=== PATIENT | male | born 1960 | race Caucasian/White ===

== ENCOUNTER 2024-06-07 15:50 | Outpatient (REF) | payer BC, SELFPAY ==
--- NOTE | ~2024-06-07 | XR_ITS ---
CLINICAL HISTORY: chronic cough Chest two-view Comparison: None Findings: Mild cardiomegaly. Normal mediastinal contour. No venous distention, edema, pleural effusion. No consolidation. Thoracic spondylosis and mild arthrosis of the AC joints. Otherwise bones intact. Upper abdomen unremarkable. IMPRESSION: Mild cardiomegaly. Otherwise no acute cardiopulmonary process. This document has been electronically signed by: Jani Price MD on 06/10/2024 13:26:39
--- OUTSIDE RECORDS SUMMARY | 2024-06-07 16:45 | XMS_ITS | Continuity of Care Document ---
Author Organization [facility], [facility] Address [address] [place] [address] [place] [address] Assessment No assessment recorded. Plan of Treatment Reminders Order Date Submit Date Provider Last Modified By Organization Details Last Modified Time Details Appointments SDV 2024 02:45P M JOSE RAFAEL GRANADOS Not available Not available Not available ANNUAL EXAM 2024 09:00A M DR GELLER Not available Not available Not available Lab None recorded. Referral None recorded. Procedures None recorded. Surgeries None recorded. Imaging XR, chest 2024 025 [facility] (Imaging), [address] [place] [address], [address], 06/07/2024 15:23:52 Medication Orders benzonata te 200 mg capsule 2024 025 [facility], [address] [place], [address], 06/07/2024 15:22:22 Medrol (Raúl) 4 mg tablets in a dose pack 2024 025 [facility], [address] [place], [address], 06/07/2024 15:22:21 Patient TargetsNo targets recorded. Patient InstructionsNo instructions recorded. Reason for Referral None Reported. Problems Name Problem SNOMED Code Status Onset Date Resolution Date Notes Provider Name and Address Organization Details Recorded Time COVID-19 960090398 Active 2021 Chana acosta [place] - [facility] 11/18/202 2 10:58:11 Chronic cough 84755735 Active 2024 JOSE RAFAEL GRANADOS [address] [place], [address], [facility] 5 15:15:53 Problem Notes None recorded. Medical Equipment None Reported. Allergies No known drug allergies Medications Name Sig Start Date Stop Date Status Note LastModified by Organization Details LastModified Time ibuprofen 800 mg tablet 06/07 completed Not Available Not Available Not Available benzonatate 200 mg capsule Take 1 capsule 3 times a day by oral route for 14 days. 2024 active Not Available Not Available Not Avai lable Medrol (Raúl) 4 mg tablets in a dose pack Take 1 dose pk by oral route. 2024 active Not Available Not Available Not Avai lable Zyrtec 10 mg tablet Take 1 tablet every day by oral route. 06/07 completed Not Available Not Available Not Available amoxicillin 500 mg tablet 06/07 completed Not Available Not Available Not Available bisacodyl 5 mg tablet,delay ed release 03/27 completed Not Available Not Available Not Available chlorhexidin e gluconate 0.12 % mouthwash 06/07 completed Not Available Not Available Not Available peg 3350-electro lytes 236 gram-22.74 gram-6.74 gram-5.86 gram solution 03/27 completed Not Available Not Available Not Available Flucelvax Quad (PF) 60 mcg (15 mcg x 4)/0.5 mL IM syringe 06/07 completed Not Available Not Available Not Available Flulaval Quad (PF) 60 mcg (15 mcg x 4)/0.5 mL IM syringe 06/07 completed Not Available Not Available Not Available Vitals Date Recorded Body height Body mass index (BMI) Body weight Heart rate Oxygen saturation Oxygen saturation in Arterial blood by Pulse oximetry Systolic blood pressure Diastolic blood pressure Provider Name and Address Organization Details Last Updated DateTime 169.55 cm 27.5 kg/m2 50421.4 3 g 55 /min 97 % 97 % 140 mm[Hg] 72 mm[Hg] JOSE RAFAEL GRANADOS [address] [place], [address], [facility] 14:53:11 Social History Question Answer Notes LastModified by Organizat ion Details LastModified Time Tobacco Smoking Status Never Smoker Not Available [facility] 04/07/2020 03:36:24 What Is Your Level Of Alcohol Consumption? Occasional [id number] Information not available 04/07/2020 What Is Your Level Of Caffeine Consumption? Moderate 3 Cups Of Coffee Per Day [id number] Information not available 04/07/2020 What Was The Date Of Your Most Recent Tobacco Screening? 06/07/2024 [email or web address] Information not available 06/07/2024 How Much Tobacco Do You Smoke? No [id number] Information not available 04/07/2020 Sex: Unknown Functional Status Question Answer Note LastModified by Organization D etails LastModified Time What is your exercise level? None [id number] Information not available 04/07/2020 Mental Status None recorded. Family History Nothing Reported. Medical History No medical history recorded. Immunizations Vaccine Type Date Status Note Provider Nam e and Address Organization Details Recorded Time Influenza, split virus, quadrivalent, preservative 0 completed Conner acosta [facility] 03/02/2020 13:30:51 Past Encounters Encounter ID Performer Location Encounter Start Date Encounter Closed Date Diagnosis/Indication Diagnosis SNOMED-CT Code Diagnosis ICD10 Code Diagnosis Note [id number] JOSE RAFAEL GRANADOS [facility] [address] [address] [address] [facility] [place] [address] 06/07/2024 14:38:22 06/07/2024 15:23:51 Depression screening 801672941 Z13.31 SCREENING NEGATIVE Chronic cough 57794686 R 05.3 will set up with XRs fu with MB 06/11 Health Concerns Section Related Observation LastModified by Organization Detai ls LastModified Time None Recorded Concern Status LastModified by Organization Details LastModified Time None Recorded Payers Encounter Date Sequence Insurance Name Policy Number Policy Samano Covered Member ID Samano Member ID Guarantor Name 06/07/2024 1 [facility]: [facility] [place] [place] [id number] Eliceo Oconnor [id number] Eliceo Oconnor Notes Date Note Type Note Provider Name a nd Address Organization Details Recorded Time 5 text/html c/o chronic cough the patient has a linger coughing, productive in the morningdrier in the afternoonpatient has a sore throat, mild, actually improving, rhinorrhea has been using dayquil and nyquil throughout the last few weeks and cough drops never got checked with the initial infection a month agonever treated, no XR done recommended XR done to check for bronchitis vs walking pna given length of time and symptoms JOSE RAFAEL GRANADOS [address] [place] [address], [place], [address], [facility] 06/07/2024 15:22:43
--- OUTSIDE RECORDS SUMMARY | 2024-06-07 16:45 | XMS_ITS | Data Portability ---
Author Organization [facility], Home Service Address [address] [place] [address] Assessment No assessment recorded. Plan of Treatment Reminders Order Date Submit Date Provider Last Modified By Organization Details Last Modified Time Details Appointments SDV 2024 02:45P M JOSE RAFAEL GRANADOS Not available Not available Not available ANNUAL EXAM 2024 09:00A M DR GELLER Not available Not available Not available Lab urinalysi s, dipstick [address] [facility], [address] [facility], [place], [address], 02/26/2018 12:44:53 CMP, serum or plasma [address] [facility], [address] [place] [address], [address], 03/05/2018 07:13:18 lipid panel, blood [address] [facility], [address] [place] [address], [address], 03/05/2018 07:13:19 PSA, serum or plasma [address] [facility], [address] [place] [address], [address], 03/05/2018 07:13:19 hepatitis C Ab, serum 2019 020 [facility], [address] [place] [address], [address], 03/31/2020 11:27:16 CMP, serum or plasma 2019 [facility], [address] [place] [address], [address], 03/31/2020 11:42:33 lipid panel, blood 2019 [facility], [address] [place] [address], [address], 03/31/2020 10:54:10 CBC w/ auto diff 2019 [facility], [address] [place] [address], [address], 03/31/2020 10:54:10 Referral None recorded. Procedures None recorded. Surgeries None recorded. Imaging XR, chest [address] [place] [address] (Imaging), [address] [place] [address], [address], 06/07/2024 15:23:52 Medication Orders benzonata te 200 mg capsule 2024 025 [facility], [address] [place], [address], 06/07/2024 15:22:22 Medrol (Raúl) 4 mg tablets in a dose pack 2024 025 [facility], [address] [place], [address], 06/07/2024 15:22:21 Patient TargetsNo targets recorded. Patient Instructions Encounter Date Encounter Id Patient Instructions Last Modified By Organization Details Last Modified Time 02/26/2018 [id number] specimen collection & handling* Not available 03/05/2018 07:11:00 discussed diet and exercise Not available 02/26/2018 12:46:35 Reason for Referral None Reported. Results Created Date Observation Date Name Description Value Unit Range Abnormal Flag Note LastModifiedBy Organization Detail LastModifiedTime 02/27/20 18 02/26/2018 urina lysis , dipst ick Leukocytes Negati ve Not Available [facility] [address], [place], [address], 02/26/2018 12:11:39 02/27/20 18 02/26/2018 urina lysis , dipst ick Nitrite negati ve Not Available [facility] [address], [place], [address], 02/26/2018 12:11:39 02/27/20 18 02/26/2018 urina lysis , dipst ick Urobilinogen .2 Not Available [facility] [address], [place], [address], 02/26/2018 12:11:39 02/27/20 18 02/26/2018 urina lysis , dipst ick Protein Negati ve Not Available [facility] [address], [place], [address], 02/26/2018 12:11:39 02/27/20 18 02/26/2018 urina lysis , dipst ick pH 5.5 Not Available [facility] [address], [place], [address], 02/26/2018 12:11:39 02/27/20 18 02/26/2018 urina lysis , dipst ick Blood Negati ve Not Available [facility] [address], [place], [address], 02/26/2018 12:11:39 02/27/20 18 02/26/2018 urina lysis , dipst ick Specific [place] 1.030 Not Available [facility] [address], [place], [address], 02/26/2018 12:11:39 02/27/20 18 02/26/2018 urina lysis , dipst ick Ketone Negati ve Not Available [facility] [address], [place], [address], 02/26/2018 12:11:39 02/27/20 18 02/26/2018 urina lysis , dipst ick Bilirubin Negati ve Not Available [facility] [address], [place], [address], 02/26/2018 12:11:39 02/27/20 18 02/26/2018 urina lysis , dipst ick Glucose Negati ve Not Available [facility] Internal [facility] [address], [place], [address], 02/26/2018 12:11:39 02/27/20 18 02/26/2018 urina lysis , dipst ick Appearance Clear Not Available [facility] [address], [place], [address], 02/26/2018 12:11:39 02/27/20 18 02/26/2018 urina lysis , dipst ick Color Yellow Not Available [facility] [address], [place], [address], 02/26/2018 12:11:39 10/15/19 20 10/15/2019 , Martina ruiz ation record ed. [facility] [address] [facility], [place], [address], 10/15/2019 10:14:27 Result Notes None recorded. Problems Name Problem SNOMED Code Status Onset Date Resolution Date Notes Provider Name and Address Organization Details Recorded Time COVID-19 848919870 Active 2021 Chana acosta [place] - [facility] 2 10:58:11 Chronic cough 24897978 Active 2024 JOSE RAFAEL GRANADOS [address], [place], [address], [facility] Internal [facility] 5 15:15:53 Problem Notes None recorded. Procedures Surgical History None recorded. Imaging Results Imaging Date Name Status LastModified by Organiz ation Details LastModified Time 10/15/2019 US, kidney completed [facility] [address] [place], [address], 10/15/2019 10:14:27 Procedure Notes None recorded. Medical Equipment None Reported. [...] and Address Organization Details Last Updated DateTime 0 169.55 cm 28.2 kg/m2 61823.2 4 g 54 /min 97 % 97 % 122 mm[Hg] 60 mm[Hg] Annabel Martinez [facility] 0 09:31:57 Date Recorded Body height Body mass index (BMI) Body weight Heart rate Oxygen saturation Oxygen saturation in Arterial blood by Pulse oximetry Systolic blood pressure Diastolic blood pressure Provider Name and Address Organization Details Last Updated DateTime 8 169.55 cm 26.5 kg/m2 18447.2 4 g 52 /min 98 % 98 % 112 mm[Hg] 60 mm[Hg] Annabel Juan [facility] 8 12:15:37 Date Recorded Body height Body mass index (BMI) Body weight Heart rate Oxygen saturation Oxygen saturation in Arterial blood by Pulse oximetry Systolic blood pressure Diastolic blood pressure Provider Name and Address Organization Details Last Updated DateTime 5 169.55 cm 27.5 kg/m2 03894.4 3 g 55 /min 97 % 97 % 140 mm[Hg] 72 mm[Hg] JOSE RAFAEL GRANADOS [address] [place], [address], [facility] 5 14:53:11 Social History Question Answer Notes LastModified by Organizat ion Details LastModified Time Tobacco Smoking Status Never Smoker Not Available [facility] 04/07/2020 03:36:24 What Is Your Level Of Alcohol Consumption? Occasional [id number] Information not available 04/07/2020 What Is Your Level Of Caffeine Consumption? Moderate 3 Cups Of Coffee Per Day [id number] Information not available 04/07/2020 What Was The Date Of Your Most Recent Tobacco Screening? 06/07/2024 [email or web address] Information not available 06/07/2024 How Much Tobacco Do You Smoke? No [id number] Information not available 04/07/2020 Sex: Unknown Functional Status Question Answer Note LastModified by Organization D etails LastModified Time What is your exercise level? None [id number] Information not available 04/07/2020 Mental Status None recorded. Family History Nothing Reported. Medical History No medical history recorded. Immunizations Vaccine Type Date Status Note Provider Nam e and Address Organization Details Recorded Time Influenza, split virus, quadrivalent, preservative 0 completed Conner acosta [facility] 03/02/2020 13:30:51 Past Encounters Encounter ID Performer Location Encounter Start Date Encounter Closed Date Diagnosis/Indication Diagnosis SNOMED-CT Code Diagnosis ICD10 Code [id number] Tacho Geller [facility] Internal [facility] [address] [facility] [address] 02/26/2018 11:59:25 02/26/2018 13:35:56 Adult health examination 892423449 Z00.00 Active or passive immunization 726732931 Z23 [id number] Tacho Geller [facility] Internal Medicine [address] [facility] [address] 03/27/2020 09:28:32 03/27/2020 09:56:56 Active or passive immunization 226229947 Z23 Adult heal th examination 934626764 Z00.00 [id number] JOSE RAFAEL GRANADOS [facility] Internal Medicine [address] [facility] [address] 06/07/2024 14:38:22 06/07/2024 15:23:51 Depression screening 413171862 Z13.31 Chronic cough 00367719 R 05.3 Health Concerns Section Related Observation LastModified by Organization Detai ls LastModified Time None Recorded Concern Status LastModified by Organization Details LastModified Time None Recorded Advance Directives Directive None Recorded Payers Encounter Date Sequence Insurance Name Policy Number Policy Samano Covered Member ID Samano Member ID Guarantor Name 02/26/2018 1 [facility]: [facility] [place] [place] [id number] Eliceoclaire Merloslass [id number] 24 Eliceo Lytle 03/27/2020 1 [facility]: [facility] ([facility] [place] [id number] Eliceo P Lytle [id number] 24 Eliceo Lytle 06/07/2024 1 [facility]: [facility] ([facility] [place] [id number] Eliceo P Lytle [id number] 24 Eliceo Lytle Notes Date Note Type Note Provider Name a nd Address Organization Details Recorded Time 8 text/html Annual WellnessReported bypatient.Diet and Nutrition:healthy diet Fracture Risk:no history of fractures; no recent explained fracture; no sudden unexplained fractures; no previous musculoskeletal injuries Physical Activity:exercises on a regular basis; recent increase in physical activity; good physical condition Additional Lifestyle Factors:no tobacco use; no alcohol intake; stopped drinking alcohol Depression Risk:never feels sad, empty, or tearful; no loss of interest in activities; no significant changes in weight; no sleep disturbances or insomnia; no agitation; no loss of energy; no feelings of worthlessness or guilt; no thoughts of suicide; no history of depression; no history of mood disorders Hearing:no loss of hearing Vision:no vision problems here for rechk Tacho Amandeep Geller, DO [address] [place] [address], [address], [facility] 02/26/2018 12:46:49 0 text/html Annual WellnessReported bypatient.Diet and Nutrition:healthy diet Fracture Risk:no history of fractures; no recent explained fracture; no sudden unexplained fractures; no previous musculoskeletal injuries Physical Activity:exercises on a regular basis; recent increase in physical activity; good physical condition Additional Lifestyle Factors:no tobacco use; no alcohol intake; stopped drinking alcohol Depression Risk:never feels sad, empty, or tearful; no loss of interest in activities; no significant changes in weight; no sleep disturbances or insomnia; no agitation; no loss of energy; no feelings of worthlessness or guilt; no thoughts of suicide; no history of depression; no history of mood disorders Hearing:no loss of hearing Vision:no vision problems Tacho Geller DO [address] [place] [address], [address], [facility] 03/27/2020 09:51:55 5 text/html c/o chronic cough the patient [...] of time and symptoms JOSE RAFAEL GRANADOS [address] [place], [address], [facility] 06/07/2024 15:22:43
== END 2024-06-07 15:51 | disposition home or self-care (01) ==
LOC: HO.XRAY 15:50
PROVIDERS: PCP Internal Medicine; Visit Provider Physician Assistant
DX: R05.3 Chronic cough (principal)
CPT/HCPCS: 71046

== ENCOUNTER → 2024-06-07 16:10 | Outpatient (BNV) | payer BC, SELFPAY | PROVIDERS: PCP Internal Medicine; Visit Provider Radiology Diagnostic Radiology | DX: R05.3 Chronic cough (principal) | CPT/HCPCS: 71046 ==

== ENCOUNTER 2024-06-12 09:22 | Outpatient (REF) | payer BC, SELFPAY ==
--- OUTSIDE RECORDS SUMMARY | 2024-06-12 09:27 | XMS_ITS | Data Portability ---
Author Organization [facility] Home Service Address [address] [place] [address] Assessment No assessment recorded. Plan of Treatment Reminders Order Date Submit Date Provider Last Modified By Organization Details Last Modified Time Details Appointments ANNUAL EXAM 2025 09:00A M DR GELLER Not available Not available Not available Lab CMP, serum or plasma 2024 025 [facility], [address] [place] [address], [id number], 06/11/2024 09:23:41 CBC w/ auto diff 2024 025 [facility], [address] [place] [address], [id number], 06/11/2024 09:23:41 PSA, serum or plasma 2024 025 [facility], [address] [place] [address], [address], 06/11/2024 09:23:41 lipid panel, blood 2024 025 [facility], [address] [place] [address], [id number], 06/11/2024 09:23:41 vitamin D, 25-hydrox y, total, serum 2024 025 [facility], [address] [place] [address], [address], 06/11/2024 09:23:41 hepatitis C Ab, serum 2019 [facility], [address] [place] [address], [address], 03/31/2020 11:27:16 CMP, serum or plasma 2019 [facility], [address] [place] [address], [address], 03/31/2020 11:42:33 lipid panel, blood 2019 [facility], [address] [place] [address], [address], 03/31/2020 10:54:10 CBC w/ auto diff 2019 [facility], [address] [place] [address], [id number], 03/31/2020 10:54:10 urinalysi s, dipstick [address] [facility], [address] [facility], [address], [place], [address], 02/26/2018 12:44:53 CMP, serum or plasma [address] [facility], [address] [place] [address], [address], 03/05/2018 07:13:18 lipid panel, blood [address] [facility], [address] [place] [address], [address], 03/05/2018 07:13:19 PSA, serum or plasma [facility] [address] [facility] [place] [address] Laboratory, [address] [place] [address], [address], 03/05/2018 07:13:19 Referral None recorded. Procedures None recorded. Surgeries None recorded. Imaging CT, heart, w/o contrast, w/ coronary calcium score 2024 025 [facility], [address] [facility], [place], [address], 06/11/2024 09:30:09 XR, chest 2024 025 [facility] (Imaging), [address] [place], [address], 06/10/2024 13:44:48 Medication Orders azithromy juan 250 mg tablet 2024 025 [facility], [address] [place], [address], 06/11/2024 09:26:17 benzonata te 200 mg capsule 2024 025 [place] [facility], [address] [place], [address], 06/07/2024 15:22:22 Medrol (Raúl) 4 mg tablets in a dose pack 2024 025 [place] [facility], [address] [place], [address], 06/07/2024 15:22:21 Patient TargetsNo targets recorded. Patient Instructions Encounter Date Encounter Id Patient Instructions Last Modified By Organization Details Last Modified Time 02/26/2018 [id number] specimen collection & handling* Not available 03/05/2018 07:11:00 discussed diet and exercise Not available 02/26/2018 12:46:35 Reason for Referral None Reported. Results Created Date Observation Date Name Description Value Unit Range Abnormal Flag Note LastModifiedBy Organization Detail LastModifiedTime 02/27/20 18 02/26/2018 urina lysis , dipst ick Leukocytes Negati ve Not Available [facility] [address] [facility] [address], [place], [address], 02/26/2018 12:11:39 02/27/20 18 02/26/2018 urina lysis , dipst ick Nitrite negati ve Not Available [facility] [address] [facility] [address], [place], [address], 02/26/2018 12:11:39 02/27/20 18 02/26/2018 urina lysis , dipst ick Urobilinogen .2 Not Available [facility] [address] [facility] [address], [place], [address], 02/26/2018 12:11:39 02/27/20 18 02/26/2018 urina lysis , dipst ick Protein Negati ve Not Available [facility] [address] [facility] [address], [place], [address], 02/26/2018 12:11:39 02/27/20 18 02/26/2018 urina lysis , dipst ick pH 5.5 Not Available [facility] [address] [facility] [address], [place], [address], 02/26/2018 12:11:39 02/27/20 18 02/26/2018 urina lysis , dipst ick Blood Negati ve Not Available [facility] [address] [facility] [address], [place], [address], 02/26/2018 12:11:39 02/27/20 18 02/26/2018 urina lysis , dipst ick Specific Ball 1.030 Not Available [facility] [address] [facility] [address], [place], [address], 02/26/2018 12:11:39 02/27/20 18 02/26/2018 urina lysis , dipst ick Ketone Negati ve Not Available [facility] [address] [facility] [address], [place], [address], 02/26/2018 12:11:39 02/27/20 18 02/26/2018 urina lysis , dipst ick Bilirubin Negati ve Not Available [facility] [address] [facility] [address], [place], [address], 02/26/2018 12:11:39 02/27/20 18 02/26/2018 urina lysis , dipst ick Glucose Negati ve Not Available [facility] [address] [facility] [address], [place], [address], 02/26/2018 12:11:39 02/27/20 18 02/26/2018 urina lysis , dipst ick Appearance Clear Not Available [facility] [address] [facility] [address], [place], [address], 02/26/2018 12:11:39 02/27/20 18 02/26/2018 urina lysis , dipst ick Color Yellow Not Available [facility] [address] [facility] [address], [place], [address], 02/26/2018 12:11:39 10/15/19 20 10/15/2019 US, teri henderson No observ ation record ed. [facility] [address] [place], [address], 10/15/2019 10:14:27 06/10/19 25 06/07/2024 XR, chest No observ ation record ed. [email or web address] [facility] (Imaging) [address] [place], [address], 06/11/2024 10:39:34 Result Notes None recorded. Problems Name Problem SNOMED Code Status Onset Date Resolution Date Notes Provider Name and Address Organization Details Recorded Time COVID-19 231026799 Active 2021 Chana acosta [facility] 2 10:58:11 Chronic cough 38489382 Active 2024 JOSE RAFAEL GRANADOS [address] [facility], [place], [address], [facility] 15:15:53 Pneumoniti s 323829165 Active 2024 Tacho Geller, DO [address] [facility], [place], [address], [place] [facility] 09:25:17 Problem Notes None recorded. Procedures Surgical History None recorded. Imaging Results Imaging Date Name Status LastModified by Organiz ation Details LastModified Time 10/15/2019 US, kidney completed Natarajan Nataliya [facility] [address] [place], [address], 10/15/2019 10:14:27 06/07/2024 XR, chest completed [email or web address] [facility] (Imaging) [address] [place], [address], 06/11/2024 10:39:34 Procedure Notes None recorded. Medical Equipment None Reported. Allergies No known drug allergies Medications Name Sig Start Date Stop Date Status Note LastModified by Organization Details LastModified Time azithromycin 250 mg tablet TAKE 2 TABLETS (500 MG) BY ORAL ROUTE ONCE DAILY FOR 1 DAY THEN 1 TABLET (250 MG) BY ORAL ROUTE ONCE DAILY FOR 4 DAYS 2024 active Not Available Not Available Not Avai lable ibuprofen 800 mg tablet 06/07 completed Not Available Not Available Not Available benzonatate 200 mg capsule Take 1 capsule 3 times a day by oral route for 14 days. active Not Available Not Available No t Available Zyrtec 10 mg tablet Take 1 tablet every day by oral route. 06/07 completed Not Available Not Available Not Available amoxicillin 500 mg tablet 06/07 completed Not Available Not Available Not Available bisacodyl 5 mg tablet,delay ed release 03/27 completed Not Available Not Available Not Available methylpredni solone 4 mg tablets in a dose pack Take 1 dose pk by oral route. active Not Available Not Available No t Available chlorhexidin e gluconate 0.12 % mouthwash [...] Updated DateTime 0 169.55 cm 28.2 kg/m2 28052.2 4 g 54 /min 97 % 97 % 122 mm[Hg] 60 mm[Hg] Annabel Martinez [facility] 0 09:31:57 Date Recorded Body height Body mass index (BMI) Body weight Heart rate Oxygen saturation Oxygen saturation in Arterial blood by Pulse oximetry Systolic blood pressure Diastolic blood pressure Provider Name and Address Organization Details Last Updated DateTime 8 169.55 cm 26.5 kg/m2 95323.2 4 g 52 /min 98 % 98 % 112 mm[Hg] 60 mm[Hg] Annabel Martinez [facility] 8 12:15:37 Date Recorded Body height Body mass index (BMI) Body weight Heart rate Oxygen saturation Oxygen saturation in Arterial blood by Pulse oximetry Systolic blood pressure Diastolic blood pressure Provider Name and Address Organization Details Last Updated DateTime 5 169.55 cm 27.5 kg/m2 31418.4 3 g 55 /min 97 % 97 % 140 mm[Hg] 72 mm[Hg] JOSE RAFAEL GRANADOS [address] [place], [address], [facility] 5 14:53:11 Date Recorded Body height Body mass index (BMI) Body weight Heart rate Oxygen saturation Oxygen saturation in Arterial blood by Pulse oximetry Systolic blood pressure Diastolic blood pressure Provider Name and Address Organization Details Last Updated DateTime 5 169.55 cm 27.6 kg/m2 77579.6 6 g 69 /min 98 % 98 % 122 mm[Hg] 70 mm[Hg] Tacho Geller DO [address] [place], [address], [facility] 08:59:29 Social History Question Answer Notes LastModified by Organizat ion Details LastModified Time Tobacco Smoking Status Never Smoker Not Available [facility] 04/07/2020 03:36:24 What Is Your Level Of Alcohol Consumption? Occasional [id number] Information not available 04/07/2020 What Is Your Level Of Caffeine Consumption? Moderate 3 Cups Of Coffee Per Day [id number] Information not available 04/07/2020 What Was The Date Of Your Most Recent Tobacco Screening? 06/11/2024 Information not available 06/11/2024 How Much Tobacco Do You Smoke? No [id number] Information not available 04/07/2020 Do You Or Have You Ever Used Any Other Forms Of Tobacco Or Nicotine? No Information not available 06/11/2024 Sex: Unknown Functional Status Question Answer Note LastModified by Organization D etails LastModified Time What is your exercise level? None [id number] Information not available 04/07/2020 Mental Status None recorded. Family History Nothing Reported. Medical History No medical history recorded. Immunizations Vaccine Type Date Status Note Provider Nam e and Address Organization Details Recorded Time Influenza, split virus, quadrivalent, preservative 0 completed Conner Geller [facility] 03/02/2020 13:30:51 Past Encounters Encounter ID Performer Location Encounter Start Date Encounter Closed Date Diagnosis/Indication Diagnosis SNOMED-CT Code Diagnosis ICD10 Code Diagnosis Note [id number] Tacho Geller DO [facility] [address] [place] [address] [place] [address] 02/26/2018 11:59:25 02/26/2018 13:35:56 Adult health examination 025473710 Z00.00 Active or passive immunization 427548714 Z23 [id number] Tacho Geller DO [facility] [address] [place] [address] [place] [address] 03/27/2020 09:28:32 03/27/2020 09:56:56 Active or passive immunization 542032733 Z23 Adult heal th examination 494300058 Z00.00 doing great and no major issues followed by urologist for CaP but no evidence of recurrence and is back to 1 x yr visits [id number] Tacho Geller DO [facility] [address] [facility] noemi [facility] [place] [address] 06/11/2024 08:52:49 06/11/2024 09:30:08 Adult health examination 431868159 Z00.00 doing great and no major issues followed by urologist for CaP but no evidence of recurrence and is back to 1 x yr visits Pneumonitis 327577636 J1 8.9 [id number] JOSE RAFAEL GRANADOS [facility] [address] [facility],[place] [address] 06/07/2024 14:38:22 06/07/2024 15:23:51 Depression screening 572775653 Z13.31 SCREENING NEGATIVE Chronic cough 45756451 R 05.3 will set up with XRhas fu with MB 06/11 Health Concerns Section Related Observation LastModified by Organization Detai ls LastModified Time None Recorded Concern Status LastModified by Organization Details LastModified Time None Recorded Advance Directives Directive None Recorded Payers Encounter Date Sequence Insurance Name Policy Number Policy Samano Covered Member ID Samano Member ID Guarantor Name 02/26/2018 1 [place] [facility] [place] [id number] Eliceo [place] [id number] [place] 03/27/2020 1 [place] [facility] [place] [place] [id number] Eliceo [place] [id number] [place] 06/07/2024 1 [place] [facility] [place] [place] [id number] Eliceo [place] [id number] 24 [place] 06/11/2024 1 [place] [facility] [place] [place] [id number] Eliceo P [place]vin [id number] [address] [place] [place] Notes Date Note Type Note Provider Name [...] Vision:no vision problems here for rechk Tacho ColbyNedra Geller DO [address] [place] [address], [address], [facility] 02/26/2018 12:46:49 0 text/html Annual [...] loss of hearing Vision:no vision problems Tacho ColbyNedra Geller DO [address] [place] [address], [address], [facility] 03/27/2020 09:51:55 5 text/html c/o [...] time and symptoms JOSE RAFAEL GRANADOS [address] [place], [address], [facility] 06/07/2024 15:22:43 5 text/html doing well overallrelates that he has had a cough for several weeks #3-4 and remains a problem it is productivestates usual aches and painsalso noted to have diminished hearinggetting dentition worked on Tacho Geller, DO [address] [facility], [place], [address], [facility] 06/11/2024 09:28:59
--- OUTSIDE RECORDS SUMMARY | 2024-06-12 09:28 | XMS_ITS | Continuity of Care Document ---
Author Organization [facility], [facility] Address [address] [facility] [place] [address] Assessment No assessment recorded. Plan of Treatment Reminders Order Date Submit Date Provider Last Modified By Organization Details Last Modified Time Details Appointments ANNUAL EXAM 2025 09:00A M DR GELLER Not available Not available Not available Lab None recorded . Referral None recorded . Procedures None recorded . Surgeries None recorded . Imaging None recorded . Medication Orders None recorded . Patient TargetsNo targets recorded. Patient InstructionsNo instructions recorded. Reason for Referral None Reported. Results Created Date Observation Date Name Description Value Unit Range Abnormal Flag Note LastModifiedBy Organization Detail LastModifiedTime 06/10/19 25 06/07/2024 XR, chest No observ ation record ed. [email or web address] [facility] (Imaging) [address] [place] [address], [address], 06/11/2024 10:39:34 Result Notes None recorded. Problems Name Problem SNOMED Code Status Onset Date Resolution Date Notes Provider Name and Address Organization Details Recorded Time COVID-19 271324178 Active 2021 Chana acosta [facility] 2 10:58:11 Chronic cough 79623691 Active 2024 JOSE RAFAEL GRANADOS [address] [place] [address], [address], [facility] 5 15:15:53 Pneumoniti s 726356554 Active 2024 Tacho Geller DO [address] [place] [address], [address], [facility] 5 09:25:17 Problem Notes None recorded. Medical Equipment None [...] Updated DateTime 5 169.55 cm 27.5 kg/m2 42581.4 3 g 55 /min 97 % 97 % 140 mm[Hg] 72 mm[Hg] JOSE RAFAEL GRANADOS [address] [place], [address] , [place] [facility] [place] [facility] 5 14:53:11 Social History Question Answer Notes LastModified by Organizat ion Details LastModified Time Tobacco Smoking Status Never Smoker Not Available [employer] 04/07/2020 03:36:24 What Is Your Level Of Alcohol Consumption? Occasional [id number] Information not available 04/07/2020 What Is Your Level Of Caffeine Consumption? Moderate 3 Cups Of Coffee Per Day [id number] Information not available 04/07/2020 What Was The Date Of Your Most Recent Tobacco Screening? 06/11/2024 Information not available 06/11/2024 How Much Tobacco Do You Smoke? No [id number] Information not available 04/07/2020 Do You Or Have You Ever Used Any Other Forms Of Tobacco Or Nicotine? No Information not available 06/11/2024 Sex: Unknown Functional Status Question Answer Note LastModified by Organization D etails LastModified Time What is your exercise level? None [id number] Information not available 04/07/2020 Mental Status None recorded. Family History Nothing Reported. Medical History No medical history recorded. Immunizations Vaccine Type Date Status Note Provider Nam e and Address Organization Details Recorded Time Influenza, split virus, quadrivalent, preservative 0 completed Conner acosta [facility] 03/02/2020 13:30:51 Past Encounters Encounter ID Performer Location Encounter Start Date Encounter Closed Date Diagnosis/Indication Diagnosis SNOMED-CT Code Diagnosis ICD10 Code Diagnosis Note [id number] JOSE RAFAEL GRANADOS [facility] [address] [facility],[place] [address] 06/07/2024 14:38:22 06/07/2024 15:23:51 Depression screening 746289134 Z13.31 SCREENING NEGATIVE Chronic cough 33360561 R 05.3 will set up with XRs fu with MB 06/11 Health Concerns Section Related Observation LastModified by Organization Detai ls LastModified Time None Recorded Concern Status LastModified by Organization Details LastModified Time None Recorded Payers Encounter Date Sequence Insurance Name Policy Number Policy Samano Covered Member ID Samano Member ID Guarantor Name 06/07/2024 1 [place] [facility] [place] [id number] Eliceo [place] [id number] [place] [place] Notes Date Note Type [...] of time and symptoms JOSE RAFAEL GRANADOS [address] [place] [address], [place], [address], [facility] 06/07/2024 15:22:43
--- OUTSIDE RECORDS SUMMARY | 2024-06-12 09:28 | XMS_ITS | Continuity of Care Document ---
Author Organization [facility], [facility] Address [address] [facility] [place] [place] [address] Assessment No assessment recorded. Plan of Treatment [...] chest No observ ation record ed. [email or web address] [facility] (Imaging) [address] [place] [address], [address], 06/11/2024 10:39:34 Result Notes None recorded. Problems Name Problem SNOMED Code Status Onset Date Resolution Date Notes Provider Name and Address Organization Details Recorded Time COVID-19 656337835 Active 2021 Chana acosta [facility] 2 10:58:11 Chronic cough 24274684 Active 2024 JOSE RAFAEL GRANADOS [address] [place] [address], [address], [facility] 5 15:15:53 Pneumoniti s 024750563 Active 2024 Tacho Geller DO [address] [place] [address], [address], [facility] 5 09:25:17 Problem Notes None [...] Updated DateTime 5 169.55 cm 27.6 kg/m2 10874.6 6 g 69 /min 98 % 98 % 122 mm[Hg] 70 mm[Hg] Tacho Geller, DO [address] [place], [address] [place] [address] Internal Medicine 5 08:59:29 Social History Question Answer Notes LastModified by Organizat ion Details LastModified Time Tobacco Smoking Status Never Smoker Not Available [employer] 04/07/2020 03:36:24 What Is Your Level Of Alcohol Consumption? Occasional [id number] Information not available 04/07/2020 What Is Your Level Of Caffeine Consumption? Moderate 3 Cups Of Coffee Per Day [id number] Information not available 04/07/2020 What Was The Date Of Your Most Recent Tobacco Screening? 06/11/2024 Information not available 06/11/2024 How Much Tobacco Do You Smoke? No [id number] Information not available 04/07/2020 Do You Or Have You Ever Used Any Other Forms Of Tobacco Or Nicotine? No Information not available 06/11/2024 Sex: Unknown Functional Status Question Answer Note LastModified by Organization D etails LastModified Time What is your exercise level? None [id number] Information not available 04/07/2020 Mental Status None recorded. Family History Nothing Reported. Medical History No medical history recorded. Immunizations Vaccine Type Date Status Note Provider Nam e and Address Organization Details Recorded Time Influenza, split virus, quadrivalent, preservative 0 completed Conner Geller [facility] 03/02/2020 13:30:51 Past Encounters Encounter ID Performer Location Encounter Start Date Encounter Closed Date Diagnosis/Indication Diagnosis SNOMED-CT Code Diagnosis ICD10 Code Diagnosis Note [id number] Tacho Geller DO [facility] [address] [facility] [address] 06/11/2024 08:52:49 06/11/2024 09:30:08 Adult health examination 112500766 Z00.00 doing great and no major issues followed by urologist for CaP but no evidence of recurrence and is back to 1 x yr visits Pneumonitis 476414205 J1 8.9 [id number] JOSE RAFAEL GRANADOS [facility] [address] [facility] [place] [address] 06/07/2024 14:38:22 06/07/2024 15:23:51 Depression screening 231171823 Z13.31 SCREENING NEGATIVE Chronic cough 29659994 R 05.3 will set up with XRhas fu with 06/11 Health Concerns Section Related Observation LastModified by Organization Detai ls LastModified Time None Recorded Concern Status LastModified by Organization Details LastModified Time None Recorded Payers Encounter Date Sequence Insurance Name Policy Number Policy Samano Covered Member ID Samano Member ID Guarantor Name 06/11/2024 1 [facility]: [facility] [place] [id number] Eliceo Oconnor [id number] Eliceo [place] Notes Date Note Type Note Provider Name a nd Address Organization Details Recorded Time text/html doing well overallrelates that he has had a cough for several weeks #3-4 and remains a problem it is productivestates usual aches and painsalso noted to have diminished hearinggetting dentition worked on Tacho Geller, DO [address] [place] [address], [place], [address], [facility] 06/11/2024 09:28:59
[2024-06-12 09:42] LABS: MANUAL DIFF FLAG NO
[2024-06-12 10:05] LABS: Basophils Percent Auto 0.3 % (0-2); Eosinophils Absolute Auto 0.2 X10*3/uL (0.0-0.4); Eosinophils Percent Auto 1.9 % (0-4); Hematocrit 42.3 % (42.0-52.0); Imm Gran Pct Auto 0.9 % (0.0-0.4); Lymphocytes Absolute Auto 2.2 X10*3/uL (1.2-4.9); Lymphocytes Percent Auto 20.1 % (20-40); Mean Corpuscular HGB Conc 33.1 g/dl (31.0-36.0); Mean Corpuscular Hemoglobin 29.3 pg (27.0-33.0); Mean Corpuscular Volume 88.5 fL (80.0-98.0); Mean Platelet Volume 10.5 fL (9.4-12.4); Monocytes Percent Auto 9.1 % (2-11); Neutrophils Absolute Auto 7.3 x10*3/uL (2.0-8.3); Neutrophils Percent Auto 67.7 % (45-73); Platelet Count 296 X10*3/uL (160-400); Red Blood Count 4.78 X10*6/uL (4.60-5.80); Red Cell Distribution Width 12.8 % (11.0-16.0); White Blood Count 10.8 X10*3/uL (4.8-10.8)
[2024-06-12 10:42] LABS: Alanine Aminotransferase 24 U/L (0-40); Albumin Level 3.9 g/dL (3.5-5.0); Alkaline Phosphatase 68 U/L (39-117); Anion Gap 11 (12-20); Aspartate Amino Transferase 31 U/L (5-37); Bilirubin Total 0.5 mg/dL (0.0-1.0); Blood Urea Nitrogen 20 mg/dL (9-16); Calcium 10.6 mg/dL (8.4-10.2); Carbon Dioxide 24 mmol/L (22-29); Chloride 109 mmol/L (96-108); Cholesterol 203 mg/dL (<200); Estimated Glomerular Filt Rate > 60; Glucose Random 85 mg/dL (60-115); HDL Cholesterol 48 mg/dL (>40); LDL Cholesterol Calculated 136 mg/dL (<100); Potassium 4.3 mmol/L (3.3-5.1); Sodium 140 mmol/L (135-145); Total Protein 7.7 g/dL (6.5-8.0); Triglycerides 95 mg/dL (<150)
[2024-06-12 10:52] LABS: Prostate Specific Antigen < 0.10 ng/mL (<0.05-4.0)
[2024-06-12 10:59] LABS: Vitamin D 25-OH Total 12.1 ng/mL (>30)
== END 2024-06-12 09:23 | disposition home or self-care (01) ==
LOC: HO.LAB 09:22
PROVIDERS: PCP Internal Medicine; Visit Provider Internal Medicine
DX: Z00.00 Encounter for general adult medical examination without abnormal findings (principal); Z12.5 Encounter for screening for malignant neoplasm of prostate; Z13.220 Encounter for screening for lipoid disorders
CPT/HCPCS: 36415; 80053; 80061; 82306; 84153; 85025

== ENCOUNTER 2024-06-25 08:25 | Outpatient (REF) | payer BC, SELFPAY ==
--- OUTSIDE RECORDS SUMMARY | 2024-06-25 08:35 | XMS_ITS | Data Portability ---
Author Organization [facility] Service Address [address] [place] [address] Assessment No assessment recorded. Plan of Treatment Reminders Order Date Submit Date Provider Last Modified By Organization Details Last Modified Time Details Appointments ANNUAL EXAM 2025 09:00A M DR GELLER Not available Not available Not available Lab urinalysi s, dipstick 2017 018 [facility], [address] [facility], [facility] [address], [place], [address], 02/26/2018 12:44:53 CMP, serum or plasma [address] [facility], [address] [place] [address], [address], 03/05/2018 07:13:18 lipid panel, blood [address] [facility], [address] [place] [address], [address], 03/05/2018 07:13:19 PSA, serum or plasma [address] [facility], [address] [place] [address], [address], 03/05/2018 07:13:19 hepatitis C Ab, serum 2019 020 [facility], [address] [place] [address], [address], 03/31/2020 11:27:16 CMP, serum or plasma 2019 020 [facility], [address] [place] [address], [address], 03/31/2020 11:42:33 lipid panel, blood 2019 020 [facility], [address] [place] [address], [address], 03/31/2020 10:54:10 CBC w/ auto diff 2019 020 [facility], [address] [place] [address], [address], 03/31/2020 10:54:10 CMP, serum or plasma 2024 025 [facility], [address] [place] [address], [address], 06/13/2024 12:59:14 CBC w/ auto diff 2024 025 [facility], [address] [place] [address], [address], 06/13/2024 12:59:14 PSA, serum or plasma 2024 025 [facility], [address] [place] [address], [address], 06/13/2024 12:59:14 lipid panel, blood 2024 025 [facility], [address] [place] [address], [address], 06/13/2024 12:59:14 vitamin D, 25-hydrox y, total, serum 2024 025 [facility], [address] [place] [address], [address], 06/13/2024 12:59:14 Referral None recorded. Procedures None recorded. Surgeries None recorded. Imaging XR, chest 2024 025 [facility] (Imaging), [address] [facility], [place], [address], 06/10/2024 13:44:48 CT, heart, w/o contrast, w/ coronary calcium score 2024 025 [facility], [address] [facility], [place], [address], 06/21/2024 15:03:24 Medication Orders benzonata te 200 mg capsule 2024 025 [facility], [address] [place], [address], 06/07/2024 15:22:22 Medrol (Raúl) 4 mg tablets in a dose pack 2024 025 [facility], [address] [place], [address], 06/07/2024 15:22:21 azithromy juan 250 mg tablet 2024 025 [facility], [address] [place], [address], 06/11/2024 09:26:17 Patient TargetsNo targets recorded. Patient Instructions Encounter Date Encounter Id Patient Instructions Last Modified By Organization Details Last Modified Time 02/26/2018 [id number] specimen collection & handling* Not available 03/05/2018 07:11:00 discussed diet and exercise Not available 02/26/2018 12:46:35 Reason for Referral None Reported. Results Created Date Observation Date Name Description Value Unit Range Abnormal Flag Note LastModifiedBy Organization Detail LastModifiedTime 02/27/20 18 02/26/2018 urina lysis , dipst ick Leukocytes Negati ve Not Available [facility] [address] [facility] [address], [place], [address], 02/26/2018 12:11:39 02/27/20 18 02/26/2018 urina lysis , dipst ick Nitrite negati ve Not Available [facility] [address] [facility] [address], [place], [address], 02/26/2018 12:11:39 02/27/20 18 02/26/2018 urina lysis , dipst ick Urobilinogen .2 Not Available [facility] [address] [facility] [address], [place], [address], 02/26/2018 12:11:39 02/27/20 18 02/26/2018 urina lysis , dipst ick Protein Negati ve Not Available [facility] [address] [facility] [address], [place], [address], 02/26/2018 12:11:39 02/27/20 18 02/26/2018 urina lysis , dipst ick pH 5.5 Not Available [facility] [address] [facility] [address], [place], [address], 02/26/2018 12:11:39 02/27/20 18 02/26/2018 urina lysis , dipst ick Blood Negati ve Not Available [facility] [address] [facility] [address], [place], [address], 02/26/2018 12:11:39 02/27/20 18 02/26/2018 urina lysis , dipst ick Specific [place] 1.030 Not Available [facility] [address] [facility] [address], [place], [address], 02/26/2018 12:11:39 02/27/20 18 02/26/2018 urina lysis , dipst ick Ketone Negati ve Not Available [facility] [address] [facility] [address], [place], [address], 02/26/2018 12:11:39 02/27/20 18 02/26/2018 urina lysis , dipst ick Bilirubin Negati ve Not Available [facility] [address] [facility] [address], [place], [address], 02/26/2018 12:11:39 02/27/20 18 02/26/2018 urina lysis , dipst ick Glucose Negati ve Not Available [facility] [address] [facility] [address], [place], [address], 02/26/2018 12:11:39 02/27/20 18 02/26/2018 urina lysis , dipst ick Appearance Clear Not Available [facility] [address] [facility] [address], [place], [address], 02/26/2018 12:11:39 02/27/20 18 02/26/2018 urina lysis , dipst ick Color Yellow Not Available [facility] [address] [facility] [address], [place], [address], 02/26/2018 12:11:39 10/15/19 20 10/15/2019 US, kidne y No observ ation record ed. [facility] [address], [place], [address], 10/15/2019 10:14:27 06/10/19 25 06/07/2024 XR, chest No observ ation record ed. [email or web address] [facility] (Imaging) [address] [facility], [place], [address], 06/11/2024 10:39:34 Result Notes None recorded. Problems Name Problem SNOMED Code Status Onset Date Resolution Date Notes Provider Name and Address Organization Details Recorded Time COVID-19 001085024 Active 2021 Chana acosta [facility] Internal [facility] 2 10:58:11 Chronic cough 38041246 Active 2024 JOSE RAFAEL GRANADOS [address] [facility], [place], [address], [facility] 5 15:15:53 Pneumoniti s 920047234 Active 2024 Tacho Geller, DO [address] [place], [address], [place] [facility] 5 09:25:17 Hyperglyce kezia 07484930 Active 2024 Tacho Geller, DO [address] [place], [address], [place] [facility] 5 23:07:47 Problem Notes None recorded. Procedures Surgical History None recorded. Imaging Results Imaging Date Name Status LastModified by Organiz ation Details LastModified Time 10/15/2019 US, kidney completed Delgado An [facility] [address] [place], [address], 10/15/2019 10:14:27 06/07/2024 XR, chest completed [email or web address] [facility] (Imaging) [address] [place], [address], 06/11/2024 10:39:34 Procedure Notes None recorded. Medical Equipment None Reported. Allergies No known drug allergies Medications Name Sig Start Date Stop Date Status Note LastModified by Organization Details LastModified Time azithromycin 250 mg tablet TAKE 2 TABLETS (500 MG) BY ORAL ROUTE ONCE DAILY FOR 1 DAY THEN 1 TABLET (250 MG) BY ORAL ROUTE ONCE DAILY FOR 4 DAYS active Not Available Not Available No t Available ibuprofen 800 mg tablet 06/07 completed Not [...] Updated DateTime 0 169.55 cm 28.2 kg/m2 03302.2 4 g 54 /min 97 % 97 % 122 mm[Hg] 60 mm[Hg] Annabel Martinez [facility] 0 09:31:57 Date Recorded Body height Body mass index (BMI) Body weight Heart rate Oxygen saturation Oxygen saturation in Arterial blood by Pulse oximetry Systolic blood pressure Diastolic blood pressure Provider Name and Address Organization Details Last Updated DateTime 8 169.55 cm 26.5 kg/m2 42595.2 4 g 52 /min 98 % 98 % 112 mm[Hg] 60 mm[Hg] Annabel Martinez [facility] 8 12:15:37 Date Recorded Body height Body mass index (BMI) Body weight Heart rate Oxygen saturation Oxygen saturation in Arterial blood by Pulse oximetry Systolic blood pressure Diastolic blood pressure Provider Name and Address Organization Details Last Updated DateTime 5 169.55 cm 27.5 kg/m2 52499.4 3 g 55 /min 97 % 97 % 140 mm[Hg] 72 mm[Hg] JOSE RAFAEL GRANADOS [address] [place], [address] [place] [address] Internal Medicine 5 14:53:11 Date Recorded Body height Body mass index (BMI) Body weight Heart rate Oxygen saturation Oxygen saturation in Arterial blood by Pulse oximetry Systolic blood pressure Diastolic blood pressure Provider Name and Address Organization Details Last Updated DateTime 5 169.55 cm 27.6 kg/m2 73218.6 6 g 69 /min 98 % 98 % 122 mm[Hg] 70 mm[Hg] Tacho Geller DO [address] [place], [address] , [facility] 5 08:59:29 Social History Question Answer Notes LastModified by Organizat ion Details LastModified Time Tobacco Smoking Status Never Smoker Not Available [facility] 04/07/2020 03:36:24 What Is Your Level Of Alcohol Consumption? Occasional [id number] Information not available 04/07/2020 What Is Your Level Of Caffeine Consumption? Moderate 3 Cups Of Coffee Per Day [id number] Information not available 04/07/2020 What Was The Date Of Your Most Recent Tobacco Screening? 06/11/2024 Information not available 06/11/2024 How Much Tobacco Do You Smoke? No [id number] Information not available 04/07/2020 Do You Or Have You Ever Used Any Other Forms Of Tobacco Or Nicotine? No Information not available 06/11/2024 Sex: Unknown Functional Status Question Answer Note LastModified by Organization D etails LastModified Time What is your exercise level? None [id number] Information not available 04/07/2020 Mental Status None recorded. Family History Nothing Reported. Medical History No medical history recorded. Immunizations Vaccine Type Date Status Note Provider Nam e and Address Organization Details Recorded Time Influenza, split virus, quadrivalent, preservative 0 completed Conner Geller [facility] 03/02/2020 13:30:51 Past Encounters Encounter ID Performer Location Encounter Start Date Encounter Closed Date Diagnosis/Indication Diagnosis SNOMED-CT Code Diagnosis ICD10 Code Diagnosis Note [id number] Tacho Geller DO [facility] [address] [place] [address],[place] [address] 02/26/2018 11:59:25 02/26/2018 13:35:56 Adult health examination 451709377 Z00.00 Active or passive immunization 219571747 Z23 [id number] Tacho Geller DO [facility] [address] [place], [place] [address] [address] 03/27/2020 09:28:32 03/27/2020 09:56:56 Active or passive immunization 856127979 Z23 Adult heal th examination 800271482 Z00.00 doing great and no major issues followed by urologist for CaP but no evidence of recurrence and is back to 1 x yr visits [id number] Tacho Geller DO [facility] [address] [facility],[place] [address] 06/11/2024 08:52:49 06/11/2024 09:30:08 Adult health examination 054360849 Z00.00 doing great and no major issues followed by urologist for CaP but no evidence of recurrence and is back to 1 x yr visits Pneumonitis 553155469 J1 8.9 [id number] JOSE RAFAEL GRANADOS [facility] [address] [facility],[place] [address] 06/07/2024 14:38:22 06/07/2024 15:23:51 Depression screening 903183852 Z13.31 SCREENING NEGATIVE Chronic cough 53220834 R 05.3 will set up with XRhas fu with MB 06/11 Health Concerns Section Related Observation LastModified by Organization Detai ls LastModified Time None Recorded Concern Status LastModified by Organization Details LastModified Time None Recorded Advance Directives Directive None Recorded Payers Encounter Date Sequence Insurance Name Policy Number Policy Samano Covered Member ID Samano Member ID Guarantor Name 02/26/2018 1 [place] [facility] [place] [place] [id number] [employer] [id number] 03/27/2020 1 [place] [employer] [place] [place] [id number] Eliceo P Elvin [id number] Eliceo Elvin 06/07/2024 1 [place] [employer] [place] [place] [id number] Eliceo P Elvin [id number] Eliceo Elvin 06/11/2024 1 [place] [employer] [place] [place] [place] [id number] Eliceo P Elvin [id number] [employer] Notes Date Note Type Note Provider Name [...] Vision:no vision problems here for rechk Tacho Geller DO [address] [place] [address], [address], [facility] 02/26/2018 12:46:49 0 [...] hearing Vision:no vision problems Tacho Geller DO [address] [place] [address], [address], [facility] 03/27/2020 09:51:55 5 [...] time and symptoms JOSE RAFAEL GRANADOS [address] [place], [address], [facility] 06/07/2024 15:22:43 5 text/html doing well overallrelates that he has had a cough for several weeks #3-4 and remains a problem it is productivestates usual aches and painsalso noted to have diminished hearinggetting dentition worked on Tacho Geller, DO [address] [facility], [place], [address], [facility] 06/11/2024 09:28:59
--- OUTSIDE RECORDS SUMMARY | 2024-06-25 08:35 | XMS_ITS | Continuity of Care Document ---
Author Organization [facility] Address [address] [place] [address] Assessment No assessment recorded. Plan of Treatment Reminders Order Date Submit Date Provider Last Modified By Organization Details Last Modified Time Details Appointments ANNUAL EXAM 2025 09:00A M DR GELLER Not available Not available Not available Lab CMP, serum or plasma 2024 025 [facility], [address] [place] [address], [address], 06/13/2024 12:59:14 CBC w/ auto diff 2024 025 [facility], [address] [place] [address], [address], 06/13/2024 12:59:14 PSA, serum or plasma 2024 025 [facility], [address] [place] [address], [address], 06/13/2024 12:59:14 lipid panel, blood 2024 025 [facility], [address] [place] [address], [address], 06/13/2024 12:59:14 vitamin D, 25-hydrox y, total, serum 2024 025 [facility], [address] [place] [address], [address], 06/13/2024 12:59:14 Referral None recorded. Procedures None recorded. Surgeries None recorded. Imaging CT, heart, w/o contrast, w/ coronary calcium score 2024 025 [facility], [address] [place], [address], 06/21/2024 15:03:24 Medication Orders azithromy juan 250 mg tablet 2024 025 [facility], [address] [place], [address], 06/11/2024 09:26:17 Patient TargetsNo targets recorded. Patient InstructionsNo instructions recorded. Reason for Referral None Reported. Results Created Date Observation Date Name Description Value Unit Range Abnormal Flag Note LastModifiedBy Organization Detail LastModifiedTime 06/10/1906/07/2024 XR, chest No observ ation record ed. [email or web address] [facility] (Imaging) [address] [place], [address], 06/11/2024 10:39:34 Result Notes None recorded. Problems Name Problem SNOMED Code Status Onset Date Resolution Date Notes Provider Name and Address Organization Details Recorded Time COVID-19 670148938 [facility] 10:58:11 Chronic cough 61189393 Active 2024 JOSE RAFAEL GRANADOS [address] [place] [address], [address], [facility] [place] 5 15:15:53 Pneumoniti s 891537852 Active 2024 Tacho Geller DO [address] [place] [address], [address], [facility] [place] 5 09:25:17 Hyperglyce kezia 78471018 Active 2024 Tacho Geller DO [address] [place] [address], [address], [facility] [place] 5 23:07:47 Problem Notes None recorded. Medical Equipment None [...] Updated DateTime 5 169.55 cm 27.6 kg/m2 22986.6 6 g 69 /min 98 % 98 % 122 mm[Hg] 70 mm[Hg] Tacho Geller, DO [address] [place], [address] [place] [address] Internal Medicine 5 08:59:29 Social History Question Answer Notes LastModified by Organizat ion Details LastModified Time Tobacco Smoking Status Never Smoker Not Available [facility] 04/07/2020 03:36:24 What Is Your Level Of Alcohol Consumption? Occasional [id number] Information not available 04/07/2020 What Is Your Level Of Caffeine Consumption? Moderate 3 Cups Of Coffee Per Day [id number] Information not available 04/07/2020 What Was The Date Of Your Most Recent Tobacco Screening? 06/11/2024 Information not available 06/11/2024 How Much Tobacco Do You Smoke? No [id number] Information not available 04/07/2020 Do You Or Have You Ever Used Any Other Forms Of Tobacco Or Nicotine? No Information not available 06/11/2024 Sex: Unknown Functional Status Question Answer Note LastModified by Organization D etails LastModified Time What is your exercise level? None [id number] Information not available 04/07/2020 Mental Status None recorded. Family History Nothing Reported. Medical History No medical history recorded. Immunizations Vaccine Type Date Status Note Provider Lior e and Address Organization Details Recorded Time Influenza, split virus, quadrivalent, preservative 0 completed Conner acosta [facility] 03/02/2020 13:30:51 Past Encounters Encounter ID Performer Location Encounter Start Date Encounter Closed Date Diagnosis/Indication Diagnosis SNOMED-CT Code Diagnosis ICD10 Code Diagnosis Note [id number] Tacho Geller DO [facility] [address] [facility],[place] [address] 06/11/2024 08:52:49 06/11/2024 09:30:08 Adult health examination 262794500 Z00.00 doing great and no major issues followed by urologist for CaP but no evidence of recurrence and is back to 1 x yr visits Pneumonitis 272183613 J1 8.9 [id number] JOSE RAFAEL GRANADOS [facility] [address] [facility],[place] [address] 06/07/2024 14:38:22 06/07/2024 15:23:51 Depression screening 009926445 Z13.31 SCREENING NEGATIVE Chronic cough 70661055 R 05.3 will set up with Jorge fu with JAIRO 06/11 Health Concerns Section Related Observation LastModified by Organization Detai ls LastModified Time None Recorded Concern Status LastModified by Organization Details LastModified Time None Recorded Payers Encounter Date Sequence Insurance Name Policy Number Policy Samano Covered Member ID Samano Member ID Guarantor Name 06/11/2024 1 [facility] [id number] Eliceo Oconnor [id number] Eliceo O[place] Notes Date Note Type Note Provider Name a nd Address Organization Details Recorded Time 5 text/html doing well overallrelates that he has had a cough for several weeks #3-4 and remains a problem it is productivestates usual aches and painsalso noted to have diminished hearinggetting dentition worked on Tacho Geller, DO [address] [place] [address], [place], [address], [facility] 06/11/2024 09:28:59
--- OUTSIDE RECORDS SUMMARY | 2024-06-25 08:36 | XMS_ITS | Continuity of Care Document ---
Author Organization [facility], [facility] Address [address] [place] [address] Assessment No assessment recorded. Plan of Treatment Reminders Order Date Submit Date Provider Last Modified By Organization Details Last Modified Time Details Appointments ANNUAL EXAM 2025 09:00A M DR GELLER Not available Not available Not available Lab None recorded. Referral None recorded. Procedures None recorded. Surgeries None recorded. Imaging XR, chest 2024 025 [facility] (Imaging), [address] [place] [address], [id number], 06/10/2024 13:44:48 Medication Orders benzonata te 200 mg capsule 2024 025 [facility], [address] [place], [id number], 06/07/2024 15:22:22 Medrol (Raúl) 4 mg tablets in a dose pack 2024 025 [facility], [address] [place], [id number], 06/07/2024 15:22:21 Patient TargetsNo targets recorded. Patient InstructionsNo instructions recorded. Reason for Referral None Reported. Results Created Date Observation Date Name Description Value Unit Range Abnormal Flag Note LastModifiedBy Organization Detail LastModifiedTime 06/10/1906/07/2024 XR, chest No observ ation record ed. [email or web address] [facility] (Im[facility]) [address] [place] [address], [id number], 06/11/2024 10:39:34 Result Notes None recorded. Problems Name Problem SNOMED Code Status Onset Date Resolution Date Notes Provider Name and Address Organization Details Recorded Time COVID-19 807094006 [facility] 10:58:11 Chronic cough 42521955 Active 2024 JOSE RAFAEL GRANADOS [address] [place], [address], [facility] 5 15:15:53 Pneumoniti s 075461958 Active 2024 Tacho Geller DO [address] [place] [address], [id number], [facility] 5 09:25:17 Hyperglyce kezia 65461151 Active 2024 Tacho Geller DO [address] [place], [address], [facility] 5 23:07:47 Problem Notes [...] Updated DateTime 5 169.55 cm 27.5 kg/m2 00918.4 3 g 55 /min 97 % 97 % 140 mm[Hg] 72 mm[Hg] JOSE RAFAEL GRANADOS [address] [place], [address] [facility] 5 14:53:11 Social History Question Answer Notes LastModified by Organizat ion Details LastModified Time Tobacco Smoking Status Never Smoker Not Available [employer] 04/07/2020 03:36:24 What Is Your Level Of Alcohol Consumption? Occasional [id number] Information not available 04/07/2020 What Is Your Level Of Caffeine Consumption? Moderate 3 Cups Of Coffee Per Day [id number] Information not available 04/07/2020 What Was The Date Of Your Most Recent Tobacco Screening? 06/11/2024 Information not available 06/11/2024 How Much Tobacco Do You Smoke? No [id number] Information not available 04/07/2020 Do You Or Have You Ever Used Any Other Forms Of Tobacco Or Nicotine? No Information not available 06/11/2024 Sex: Unknown Functional Status Question Answer Note LastModified by Organization D etails LastModified Time What is your exercise level? None [id number] Information not available 04/07/2020 Mental Status None recorded. Family History Nothing Reported. Medical History No medical history recorded. Immunizations Vaccine Type Date Status Note Provider Nam e and Address Organization Details Recorded Time Influenza, split virus, quadrivalent, preservative 0 completed Conner acosta [place] - [facility] 03/02/2020 13:30:51 Past Encounters Encounter ID Performer Location Encounter Start Date Encounter Closed Date Diagnosis/Indication Diagnosis SNOMED-CT Code Diagnosis ICD10 Code Diagnosis Note [id number] JOSE RAFAEL GRANADOS [facility] [address] [address] 06/07/2024 14:38:22 06/07/2024 15:23:51 Depression screening 091679932 Z13.31 SCREENING NEGATIVE Chronic cough 00334491 R 05.3 will set up with XRhas fu with JAIRO 06/11 Health Concerns Section Related Observation LastModified by Organization Detai ls LastModified Time None Recorded Concern Status LastModified by Organization Details LastModified Time None Recorded Payers Encounter Date Sequence Insurance Name Policy Number Policy Samano Covered Member ID Samano Member ID Guarantor Name 06/07/2024 1 [facility] [place] [place] [id number] Eliceo Oconnor [id number] Eliceo Oconnor Notes Date Note Type [...] time and symptoms JOSE RAFAEL GRANADOS [address] [place], [address], [facility] 06/07/2024 15:22:43
[2024-06-25 09:20] LABS: Estimated Average Glucose 103 mg/dL; Hemoglobin A1C 118.2234 umol/L; Hemoglobin A1c % 5.2 % (<6.0); Total Hemoglobin (HGBA1C) 3607.3108 umol/L
== END 2024-06-25 08:26 | disposition home or self-care (01) ==
LOC: HO.LAB 08:25
PROVIDERS: PCP Internal Medicine; Visit Provider Internal Medicine
DX: R73.9 Hyperglycemia, unspecified (principal)
CPT/HCPCS: 36415; 83036